=== PATIENT | female | born 1975 | race American Indian/Alaskan Native ===

== ENCOUNTER 2019-06-10 10:59 | Emergency (ER) | payer OTHER ==
--- NOTE | 2019-06-10 11:47 | Emergency Department Report ---
ED Extremity Problem HPI - General Chief complaint: Extremity Injury, Lower Stated complaint: LOWER PAIN BACK Time Seen by Provider: 06/10/19 11:13 Source: patient Mode of arrival: Ambulatory Limitations: No Limitations - History of Present Illness Initial comments: pt is a 43-year-old female presents emergency room with complaints of left hip pain that radiates down her left lateral thigh and into her left gluteus that began a week ago. Patient denies any fall or injury. States it hurts worse with movement and exercise or after she sits down for long periods. pt states that she has been sitting down studying because she is in school for approximately 5 hours a day and when she gets up she has discomfort in her left hip and thigh. She denies any numbness, weakness, bowel or bladder incontinence, back pain, urinary symptoms, fever, chills, any other symptoms at all. denies any past medical history or allergies medications. last menstrual cycle was 3 weeks ago. - Related Data Previous Rx's Medication Instructions Recorded Last Taken Type Cyclobenzaprine [Flexeril] 10 mg PO QHS PRN #10 tablet 06/10/19 Unknown Rx Naproxen [EC-Naproxen] 500 mg PO BID PRN #14 tablet. 06/10/19 Unknown Rx Allergies Allergy/AdvReac Type Severity Reaction Status Date / Time No Known Allergies Allergy Unverified 06/10/19 11:00 ED Review of Systems ROS: Stated complaint: LOWER PAIN BACK Other details as noted in HPI Comment: All other systems reviewed and negative ED Past Medical Hx - Past Medical History Previous Medical History?: No - Surgical History Past Surgical History?: No - Social History Smoking Status: Never Smoker Substance Use Type: None - Medications Home Medications: Home Medications Medication Instructions Recorded Confirmed Last Taken Type Cyclobenzaprine [Flexeril] 10 mg PO QHS PRN #10 tablet 06/10/19 Unknown Rx Naproxen [EC-Naproxen] 500 mg PO BID PRN #14 tablet. 06/10/19 Unknown Rx ED Physical Exam - General Limitations: No Limitations General appearance: alert, in no apparent distress - Head Head exam: Present: atraumatic, normocephalic - Eye Eye exam: Present: normal appearance - ENT ENT exam: Present: mucous membranes moist - Respiratory Respiratory exam: Present: normal lung sounds bilaterally. Absent: respiratory distress, wheezes, rales, rhonchi, stridor, chest wall tenderness, accessory muscle use, decreased breath sounds, prolonged expiratory - Cardiovascular Cardiovascular Exam: Present: regular rate, normal rhythm, normal heart sounds. Absent: systolic murmur, diastolic murmur, rubs, gallop - Extremities Exam Extremities exam: Present: other (no edema present in the LLE, no erythema, no TTP of the left lower extremity, FROM of the left hip, knee, ankle, and foot without any difficulty or pain, neurovascularly intact, no joint laxity) - Neurological Exam Neurological exam: Present: alert, oriented X3 - Psychiatric Psychiatric exam: Present: normal affect, normal mood - Skin Skin exam: Present: warm, dry, intact ED Course Vital Signs 06/10/19 06/10/19 11:03 18:13 Temperature 98.5 F 98.5 F Pulse Rate 77 Blood Pressure 114/76 [Left] O2 Sat by Pulse 98 Oximetry ED Medical Decision Making - Medical Decision Making pt is a 43-year-old female presents emergency room with complaints of left hip pain that radiates down her left lateral thigh and into her left gluteus that began a week ago. Patient denies any fall or injury. States it hurts worse with movement and exercise or after she sits down for long periods. pt states that she has been sitting down studying because she is in school for approximately 5 hours a day and when she gets up she has discomfort in her left hip and thigh. She denies any numbness, weakness, bowel or bladder incontinence, back pain, urinary symptoms, fever, chills, any other symptoms at all. denies any past medical history or allergies medications. last menstrual cycle was 3 weeks ago. vitals are normal. on exam: no edema present in the LLE, no erythema, no TTP of the left lower extremity, FROM of the left hip, knee, ankle, and foot without any difficulty or pain, neurovascularly intact, no joint laxity. pt given prescription for naproxen and flexeril. advised pt to please take medication as prescribed as needed. Do not drive or operate heavy machinery while taking muscle relaxer. may use ice packs, heating pad, rest, Epson salt bath. may do stretching. Please follow-up with an orthopedic doctor if symptoms are not improving. Return to the emergency room for any new or worsening symptoms. - Differential Diagnosis strain, sprain, tensor fascia iona, sciatica, tendonitis, arthritis Critical care attestation.: If time is entered above; I have spent that time in minutes in the direct care of this critically ill patient, excluding procedure time. ED Disposition Clinical Impression: Left hip pain, Left thigh pain Disposition: TO HOME OR SELFCARE Is pt being admited?: No Does the pt Need Aspirin: No Condition: Stable Instructions: Muscle Strain (ED), Arthralgia (ED) Additional Instructions: Please take medication as prescribed as needed. Do not drive or operate heavy machinery while taking muscle relaxer. may use ice packs, heating pad, rest, Epson salt bath. may do stretching. Please follow-up with an orthopedic doctor if symptoms are not improving. Return to the emergency room for any new or worsening symptoms. Prescriptions: Cyclobenzaprine [Flexeril] 10 mg PO QHS PRN #10 tablet PRN Reason: Muscle Spasm Naproxen [EC-Naproxen] 500 mg PO BID PRN #14 tablet.dr PALACIOS Reason: pain Referrals: DESTINY ACKERMAN MD [Staff Physician] - as needed [facility] [Provider Group] - as needed Time of Disposition: 11:47 Print Language: BRITISH
[2019-06-10 18:14] VITALS: BP 114/76
== END 2019-06-10 12:00 | disposition home or self-care (01) ==
LOC: ED 10:59
DX: M25.552 Pain in left hip (principal); M79.652 Pain in left thigh; Z79.899 Other long term (current) drug therapy
CPT/HCPCS: 99282

== ENCOUNTER 2022-01-09 12:57 | Emergency (ER) | payer OTHER ==
--- NOTE | 2022-01-09 16:51 | Emergency Department Report ---
- General Chief Complaint: Sore Throat Stated Complaint: SORE THROAT Source: patient Mode of arrival: Ambulatory Limitations: No Limitations - History of Present Illness Initial Comments: 46-year-old female presents to the ED complaining of sore throat stuffy nose runny and x3 weeks. Patient states taking Claritin without any relief. Patient also states taking [id number] sinus medication without any relief. Denies any cough at present cough fever chills shortness of breath of breath. Patient is alert and oriented x3. No acute distress noted. No Ill appearance noted MD Complaint: cough, sore throat, nasal congestion, sinus pain Onset/Timin -: week(s) Severity: moderate Severity scale (0 -10): 6 Quality: aching Consistency: intermittent Improves With: OTC cold medicine Worsens With: nothing Associated Symptoms: denies other symptoms Treatments Prior to Arrival: none - Related Data Previous Rx's Medication Instructions Recorded Last Taken Type Cyclobenzaprine [Flexeril] 10 mg PO QHS PRN #10 tablet 06/10/19 Unknown Rx Naproxen [EC-Naproxen] 500 mg PO BID PRN #14 tablet. 06/10/19 Unknown Rx Amoxicillin/K Clav Tab [Augmentin 1 tab PO Q12HR 10 Days #20 tab 01/09/22 Unknown Rx 875 mg] predniSONE [Deltasone] 50 mg PO QDAY 3 Days #3 tab 01/09/22 Unknown Rx Allergies Allergy/AdvReac Type Severity Reaction Status Date / Time No Known Allergies Allergy Unverified 06/10/19 11:00 ED Review of Systems ROS: Stated complaint: SORE THROAT Other details as noted in HPI Constitutional: denies: chills, fever Eyes: denies: eye pain, eye discharge, vision change ENT: throat pain, congestion. denies: ear pain Respiratory: denies: cough, shortness of breath, wheezing Cardiovascular: denies: chest pain, palpitations Endocrine: no symptoms reported Gastrointestinal: denies: abdominal pain, nausea, diarrhea Genitourinary: denies: urgency, dysuria, discharge Musculoskeletal: denies: back pain, joint swelling, arthralgia Skin: denies: rash, lesions Neurological: denies: headache, weakness, paresthesias Psychiatric: denies: anxiety, depression Hematological/Lymphatic: denies: easy bleeding, easy bruising ED Past Medical Hx - Past Medical History Previous Medical History?: No - Surgical History Past Surgical History?: No - Social History Smoking Status: Never Smoker Substance Use Type: None - Medications Home Medications: Home Medications Medication Instructions Recorded Confirmed Last Taken Type Cyclobenzaprine [Flexeril] 10 mg PO QHS PRN #10 tablet 06/10/19 Unknown Rx Naproxen [EC-Naproxen] 500 mg PO BID PRN #14 tablet. 06/10/19 Unknown Rx Amoxicillin/K Clav Tab [Augmentin 1 tab PO Q12HR 10 Days #20 tab 01/09/22 Unknown Rx 875 mg] predniSONE [Deltasone] 50 mg PO QDAY 3 Days #3 tab 01/09/22 Unknown Rx ED Physical Exam - General Limitations: No Limitations General appearance: alert, in no apparent distress - Head Head exam: Present: atraumatic, normocephalic - Eye Eye exam: Present: normal appearance - ENT ENT exam: Present: mucous membranes moist - Expanded ENT Exam Expanded TM/Canal exam: Mastoid Tenderness: Right TM, Left TM (Frontal) Throat exam: Positive: other (Erythema with postnasal drip) - Neck Neck exam: Present: normal inspection - Respiratory Respiratory exam: Present: normal lung sounds bilaterally. Absent: respiratory distress - Cardiovascular Cardiovascular Exam: Present: regular rate, normal rhythm. Absent: systolic murmur, diastolic murmur, rubs, gallop - GI/Abdominal GI/Abdominal exam: Present: soft, normal bowel sounds - Extremities Exam Extremities exam: Present: normal inspection - Back Exam Back exam: Present: normal inspection - Neurological Exam Neurological exam: Present: alert, oriented X3 - Psychiatric Psychiatric exam: Present: normal affect, normal mood - Skin Skin exam: Present: warm, dry, intact, normal color. Absent: rash ED Course Vital Signs 01/09/22 14:20 Temperature 98.5 F Pulse Rate 70 Respiratory 18 Rate Blood Pressure 105/67 O2 Sat by Pulse 100 Oximetry ED Medical Decision Making - Medical Decision Making 46-year-old female presents to the ED complaining of sore throat stuffy nose runny and x3 weeks. Patient states taking Claritin without any relief. Patient also states taking [id number] sinus medication without any relief. Denies any cough at present cough fever chills shortness of breath of breath. Patient is alert and oriented x3. No acute distress noted. No Ill appearance noted. Physical examination patient has tenderness noted to the frontal cavity, postnasal drip noted. Rechecked the patient is resting quietly quietly and comfortable and feeling better. I discussed the results of diagnostic study, my clinical impression and the plan for further treatment with the patient. Patient agrees with plan and discharge at this present time. All question addressed. I have given the patient instruction regarding a diagnosis ,expectation ,follow- up and return precaution. I explained to the patient that emergent condition may arise and to return to the ED for new worsen and any new persisting condition. I have explained the importance of following up with the primary care physician or referral physician listed below has instructed. The patient verbalized understanding of discharge instruction. Critical care attestation.: If time is entered above; I have spent that time in minutes in the direct care of this critically ill patient, excluding procedure time. ED Disposition Clinical Impression: Acute frontal sinusitis Qualifiers: Recurrence: non-recurrent Qualified Code(s): J01.10 - Acute frontal sinusitis, unspecified Disposition: 01 HOME / SELF CARE / HOMELESS Is pt being admited?: No Condition: Stable Instructions: Sinusitis, Adult, [id number], How to Perform a Sinus Rinse, [id number] Additional Instructions: Take medication as prescribed Return to ED for any worsening symptom Continue take Claritin [id number] Prescriptions: Amoxicillin/K Clav Tab [Augmentin 875 mg] 1 tab PO Q12HR 10 Days #20 tab predniSONE [Deltasone] 50 mg PO QDAY 3 Days #3 tab Referrals: [facility] [Provider Group] - 3-5 Days Forms: Work/School Release Form(ED) Time of Disposition: 16:54
[2022-01-09 17:23] VITALS: BP 119/78
== END 2022-01-09 17:24 | disposition home or self-care (01) ==
LOC: ED 12:57
DX: J01.10 Acute frontal sinusitis, unspecified (principal)
CPT/HCPCS: 99282